=== PATIENT | female | born 1980 | race Caucasian/White ===

== ENCOUNTER 2020-10-22 07:02 | Emergency (ER) | payer OTHER ==
[~2020-10-22] VITALS: Ht 157.5 cm; Wt 77.1 kg
[2020-10-22 07:21] LABS: URINE BILIRUBIN NEGATIVE (Negative); URINE BLOOD 3+ (Negative); URINE CLARITY CLEAR; URINE COLOR YELLOW; URINE GLUCOSE-RANDOM NEGATIVE (Negative); URINE KETONES NEGATIVE (Negative); URINE LEUKOCYTES-REFLEX NEGATIVE (Negative); URINE NITRITE-REFLEX NEGATIVE (Negative); URINE PROTEIN NEGATIVE (Negative); URINE SPECIFIC GRAVITY >= 1.030 (1.005-1.030); URINE UROBILINOGEN 0.2 E.U./dl (0.2-1.0)
[2020-10-22 07:28] LABS: SQUAMOUS 0-3 Few /LPF (0-3)
[2020-10-22 07:29] LABS: BACTERIA-REFLEX 1-9 Few /HPF (None Seen); CASTS None Seen /LPF (None Seen); CRYSTALS None Seen /LPF (None Seen); MUCUS 0-3 Light strn/LPF (None Seen); URINE WBC-REFLEX 0-5 Rare /HPF (0-5)
[2020-10-22 07:50] LABS: ABSOLUTE EOSINOPHILS 0.1 thou/uL (0.0-0.7); ABSOLUTE LYMPHOCYTES 1.8 thou/uL (0.8-5.3); ABSOLUTE MONOCYTES 0.7 thou/uL (0.0-1.2); ABSOLUTE NEUTROPHILS 8.8 thou/uL (1.6-8.1); BASOPHILS 0.4 %; EOSINOPHILS 0.9 %; HEMATOCRIT 24.9 % (37.0-47.0); HEMOGLOBIN 7.6 gm/dL (12.0-15.0); LYMPHOCYTES 15.3 %; MCH 18.8 pg (26.0-34.0); MCHC 30.3 g/dL (28.0-37.0); MCV 61.9 fL (80.0-100.0); MONOCYTES 6.5 %; MPV 8.1 fl. (7.2-11.1); NUCLEATED RBCS 0 /100WBC; PLATELET COUNT* 321 thou/uL (150-400); POLYS 76.9 %; RBC 4.02 mil/uL (4.20-5.00); WBC 11.4 thou/uL (4.0-11.0)
[2020-10-22 07:54] LABS: CALCIUM 8.1 mg/dL (8.5-10.1); CREATININE 0.6 mg/dL (0.6-1.3); POTASSIUM 4.2 mmol/L (3.5-5.1)
[2020-10-22 07:58] LABS: ALBUMIN 3.3 g/dL (3.4-5.0); TOTAL BILIRUBIN 0.2 mg/dL (<0.1-1.0); TOTAL PROTEIN 7.4 g/dL (6.4-8.2)
[2020-10-22] MEDS ORDERED: HYDROCODON-ACE1 EAC7 PO (09:59)
[2020-10-22 10:20] VITALS: BP 124/68
--- NOTE | 2020-10-22 15:29 | EKG ---
[place] [address] ELECTROCARDIOGRAM REPORT Name: LELIA MAIER Room: [facility]#: [id number] Admission: 10/22/20 Attend Phys: Discharge: 10/22/20 Date of : 76 Date of Service: 10/22/20 0804 Report #: [id number] THIS REPORT FOR: //name// [facility] ED Test Date: 2020-10-22 Test Time: 08:04:27 Pat Name: LELIA MAIER Department: Room: Gender: Pharmacist In Charge: KAITLYNN : 1980 Requested By: Abner Wiley Order Number: [id number] MD: Reagan Burns Measurements Intervals [place] Rate: 86 P: 57 OK: 155 QRS: 54 QRSD: 84 T: 12 QT: 356 QTc: 426 Interpretive Statements Sinus rhythm Borderline T abnormalities, anterior leads Baseline wander in lead(s) V1 No previous ECG available for comparison Electronically Signed On 10-22-2020 15:29:07 CDT by Reagan Burns [email or web address] <ELECTRONICALLY SIGNED> By: Reagan Burns MD, [facility] 10/22/20 1529 0804 [id number] Reagan Burns MD, [facility] /EPI
== END 2020-10-22 10:20 | disposition home or self-care (01) ==
LOC: M.ERS 07:02
PROVIDERS: Family Medicine
DX: D50.9 Iron deficiency anemia, unspecified (principal); N93.9 Abnormal uterine and vaginal bleeding, unspecified